=== PATIENT | female | born 1960 | race Caucasian/White ===

== ENCOUNTER → 2019-10-04 | Outpatient (CLI) | payer OTHER | END | disposition home or self-care (01) | LOC: RAH 14:20 | PROVIDERS: ATTEND Internal Medicine Cardiovascular Disease | DX: R22.41 Localized swelling, mass and lump, right lower limb (principal) | CPT/HCPCS: 93971 ==

== ENCOUNTER → 2020-08-02 | Outpatient (CLI) | payer OTHER ==
[~2020-08-02] VITALS: Ht 161.3 cm; Wt 93.8 kg
[~2020-08-02] MED LIST: AMLO10TA7 PO; AMLO5TAB9 PO; AZEL23SP NS; EZET10TA48 PO; FLUT1AER IH; HYDR12.54 PO; LANS15TA10 PO; LEVO137T24 PO; ROSU40TA21 PO; SODIUM CHLORIDE 0.9% 1000ML 1,000 ML IV SCH; TELM80TA10 PO; [UNRECOGNIZED DRUG - OTHER] IH
[2020-08-02 12:21] LABS: BASOPHILS % (AUTO) 0.8 % (0.0-5.0); EOSINOPHILS % (AUTO) 2.2 % (0.0-8.0); HEMATOCRIT 39.5 % (36-48); LYMPHOCYTES % (AUTO) 26.1 % (21.0-51.0); MEAN CORPUSCULAR HEMOGLOBIN 28.5 pg (27.0-33.0); MEAN CORPUSCULAR HGB CONC 32.7 g/dL (32.0-36.0); MEAN CORPUSCULAR VOLUME 87.2 fL (79-99); MONOCYTES % (AUTO) 7.3 % (3.0-13.0); NEUTROPHILS % (AUTO) 63.2 % (40.0-77.0); PLATELET COUNT (AUTO) 271 K/uL (130-400); RED BLOOD CELL COUNT(AUTO) 4.53 MIL/uL (4.00-5.50); WHITE BLOOD COUNT (AUTO) 7.4 K/uL (4.8-10.8)
[2020-08-06 15:08] VITALS: BP 161/83
== END | disposition home or self-care (01) ==
LOC: DAH 10:00 → EDSTATUS 08-08 13:00
PROVIDERS: ATTEND Specialist
DX: Z20.828 Contact with and (suspected) exposure to other viral communicable diseases (principal); N95.0 Postmenopausal bleeding; I10 Essential (primary) hypertension; E03.9 Hypothyroidism, unspecified; J45.909 Unspecified asthma, uncomplicated
CPT/HCPCS: 36415; 85025; 86850; 86900; 86901; A6260; C9803; U0003

== ENCOUNTER 2020-08-16 12:02 | Day surgery (SDC) | payer OTHER ==
[2020-08-15 13:45] LABS: BASOPHILS % (AUTO) 1.1 % (0.0-5.0); LYMPHOCYTES % (AUTO) 22.6 % (21.0-51.0); MEAN CORPUSCULAR HEMOGLOBIN 28.7 pg (27.0-33.0); MEAN CORPUSCULAR HGB CONC 33.4 g/dL (32.0-36.0); MEAN CORPUSCULAR VOLUME 85.8 fL (79-99); MONOCYTES % (AUTO) 8.7 % (3.0-13.0); NEUTROPHILS % (AUTO) 65.2 % (40.0-77.0); PLATELET COUNT (AUTO) 298 K/uL (130-400); RED BLOOD CELL COUNT(AUTO) 4.43 MIL/uL (4.00-5.50); RED CELL DISTRIBUTION WIDTH 13.6 % (11.0-15.5); WHITE BLOOD COUNT (AUTO) 7.5 K/uL (4.8-10.8)
[2020-08-15 15:50] VITALS: BP 118/73
[~2020-08-16] VITALS: Ht 157.5 cm; Wt 92.1 kg
[2020-08-16] VITALS (17 sets, daily range): BP systolic 145–159; BP diastolic 55–98
[~2020-08-16 12:02] MED LIST changes: -AMLO10TA7 PO; -SODIUM CHLORIDE 0.9% 1000ML 1,000 ML IV SCH
[2020-08-16] MEDS ORDERED: MIDAZOLAM HCL 1 MG/ML 2ML VIAL ONE ×2 (13:16→13:21)
[2020-08-16] MEDS ORDERED: LIDOCAINE PF 2% 5ML ABBOJECT ONE (13:20)
[2020-08-16] MEDS ORDERED: DEXAMETHASONE SOD PHOSPHATE 10MG/ML 1ML VIAL ONE (13:21)
[2020-08-16] MEDS ORDERED: ONDANSETRON HCL 4 MG/2 ML VIAL ONE (13:21)
[2020-08-16] MEDS ORDERED: FENTANYL CITRATE PF 50 MCG/1 ML 2ML VIAL ONE (13:21)
[2020-08-16] MEDS ORDERED: ROCURONIUM 10MG/1ML SYR 10 MG/ML ML ONE (13:21)
[2020-08-16] MEDS ORDERED: PROPOFOL 10 MG/ML 20ML VIAL IV ONE (13:21)
[2020-08-16] MEDS ORDERED: NEOSTIGMINE 5MG/5ML SYR IV ONE (13:52)
[2020-08-16] MEDS ORDERED: GLYCOPYRROLATE 1 MG/5 ML SYRINGE ONE (13:52)
[2020-08-16] MEDS: LACTATED RINGERS 1000ML 1,000 ML IV SCH ×2 (14:17→14:45)
--- NOTE | 2020-08-16 15:20 | NUR ---
ASSESSMENT RECEIVED PT FROM PACU STAFF KHURRAM HAQ. PT DOING WELL. AAOX3. AMBULATED TO RESTROOM.
--- NOTE | 2020-08-16 16:00 | NUR ---
DISCHARGE DISCHARGE INSTRUCTIONS GIVEN TO . PRESCRIPTION GIVEN TO PT. NO OTHER QUESTIONS
== END 2020-08-16 16:10 | disposition home or self-care (01) ==
LOC: DAH 12:02
PROVIDERS: ATTEND Specialist
DX: N95.0 Postmenopausal bleeding (principal); I10 Essential (primary) hypertension; K21.9 Gastro-esophageal reflux disease without esophagitis; E03.9 Hypothyroidism, unspecified; E66.9 Obesity, unspecified; J45.909 Unspecified asthma, uncomplicated; Z79.899 Other long term (current) drug therapy
CPT/HCPCS: 36415; 58120; 85025; 86850; 86900; 86901; A4215; A4221; A4222; A4223; A4351; A4510; A4600; A4663; J1100; J2001; J2250 ×2; J2405; J2704; J2710; J3010; J3490; J7120

== ENCOUNTER 2020-11-26 15:11 | Emergency (ER) | payer BC, OTHER ==
[~2020-11-26 15:11] MED LIST changes: +AMLO-257 PO; -AMLO5TAB9 PO
[2020-11-26 15:44] LABS: PROTHROMBIN TIME 10.7 SEC (9.6-11.6)
[2020-11-26 15:46] LABS: PARTIAL THROMBOPLASTIN TIME < 20.0 SEC (26.3-35.5)
[2020-11-26 15:53] LABS: CARBON DIOXIDE 26 mmol/L (21-32); CHLORIDE 91 mmol/L (101-111); CREATININE 0.9 mg/dL (0.5-1.5); GLOMERULAR FILTR. RATE CALC 68 mL/min (>60); GLUCOSE,RANDOM 146 mg/dL (70-105); POTASSIUM 3.2 mmol/L (3.5-5.1); SODIUM SERUM 129 mmol/L (136-145); UREA NITROGEN, BLOOD 12 mg/dL (7-18)
[2020-11-26 15:55] LABS: APPEARANCE,URINE Clear (CLEAR); BILIRUBIN,URINE Negative (NEGATIVE); COLOR,URINE Yellow (YELLOW); GLUCOSE, URINE (UA) Negative (NEGATIVE); KETONES,URINE Negative (NEGATIVE); LEUKOCYTE ESTERASE ,URINE Trace (NEGATIVE); NITRATE,URINE Negative (NEGATIVE); OCCULT BLOOD,URINE Negative (NEGATIVE); PH,URINE 6.5 (5.0-8.0); PROTEIN,URINE POS 2+ mg/dL (NEGATIVE)
[2020-11-26] MEDS ORDERED: IOHEXOL-350 75 ML VIAL IV ONE (15:56)
[2020-11-26 16:00] LABS: BASOPHILS % (AUTO) 0.9 % (0.0-5.0); EOSINOPHILS % (AUTO) 0.9 % (0.0-8.0); HEMATOCRIT 33.8 % (36-48); LYMPHOCYTES % (AUTO) 10.1 % (21.0-51.0); MEAN CORPUSCULAR HEMOGLOBIN 28.9 pg (27.0-33.0); MEAN CORPUSCULAR HGB CONC 35.2 g/dL (32.0-36.0); MONOCYTES % (AUTO) 1.5 % (3.0-13.0); NEUTROPHILS % (AUTO) 85.5 % (40.0-77.0); PLATELET COUNT (AUTO) 259 K/uL (130-400); RED BLOOD CELL COUNT(AUTO) 4.12 MIL/uL (4.00-5.50); RED CELL DISTRIBUTION WIDTH 13.5 % (11.0-15.5); WHITE BLOOD COUNT (AUTO) 6.6 K/uL (4.8-10.8)
[2020-11-26 16:04] LABS: ALANINE AMINOTRANSFERASE 19 U/L (12-78); ALBUMIN 3.9 g/dL (3.5-5.0); ASPARTATE AMINOTRANSFERASE 27 U/L (10-37); BILIRUBIN,TOTAL 1.5 mg/dL (0.2-1.0); CREATINE KINASE, TOTAL 85 U/L (21-232); MYOGLOBIN 39 ng/mL (10-92); TOTAL PROTEIN, SERUM 7.6 g/dL (6.0-8.3); TROPONIN I < 0.04 ng/mL (0.00-0.06)
[2020-11-26 16:04] LABS: BACTERIA,URINE Rare /HPF (None Seen); RBC,URINE 0-1 /HPF (0-1)
[2020-11-26 16:05] LABS: MUCUS,URINE Rare LPF (None Seen); SQUAMOUS EPITHELIAL CELL,UR Few /HPF (0-2)
[2020-11-26 16:23] LABS: T4 (THYROXINE) 9.7 ug/dL (4.7-13.3); THYROID STIMULATING HORMONE 3.22 uIU/mL (0.36-3.74)
[2020-11-26] MEDS ORDERED: POTASSIUM BICARB/CIT AC 25 MEQ TABLET.EFF ONE (18:14)
[2020-11-26] MEDS ORDERED: SODIUM CHLORIDE 0.9% 1000ML 1,000 ML IV ONE (18:15)
== END 2020-11-26 20:41 | disposition home or self-care (01) ==
LOC: EDH 15:11
DX: K59.00 Constipation, unspecified (principal); R55 Syncope and collapse; I10 Essential (primary) hypertension; E03.9 Hypothyroidism, unspecified; E78.00 Pure hypercholesterolemia, unspecified; Z90.710 Acquired absence of both cervix and uterus; Z85.42 Personal history of malignant neoplasm of other parts of uterus; Z88.0 Allergy status to penicillin
CPT/HCPCS: 36415; 71045; 74177; 80053; 81001; 82550; 83605 ×2; 83874; 84145; 84436; 84443; 84484; 85025; 85610; 85730; 86140; 86900; 86901; 87040 ×2; 87077; 87088; 87186; 93005; 96360; 99285; J7030; Q9967

== ENCOUNTER 2021-03-20 11:54 | Emergency (ER) | payer BC ==
[2021-03-20 12:35] LABS: BASOPHILS % (AUTO) 0.8 % (0.0-5.0); EOSINOPHILS % (AUTO) 1.6 % (0.0-8.0); HEMATOCRIT 21.4 % (36-48); LYMPHOCYTES % (AUTO) 22.4 % (21.0-51.0); MEAN CORPUSCULAR VOLUME 91.8 fL (79-99); NEUTROPHILS % (AUTO) 72.4 % (40.0-77.0); PLATELET COUNT (AUTO) 53 K/uL (130-400); RED BLOOD CELL COUNT(AUTO) 2.33 MIL/uL (4.00-5.50); RED CELL DISTRIBUTION WIDTH 16.1 % (11.0-15.5); WHITE BLOOD COUNT (AUTO) 2.5 K/uL (4.8-10.8)
[2021-03-20 12:43] LABS: CREATININE 0.8 mg/dL (0.5-1.5); POTASSIUM 3.7 mmol/L (3.5-5.1)
[2021-03-20 12:47] LABS: ALBUMIN 3.9 g/dL (3.5-5.0); BILIRUBIN,TOTAL 0.6 mg/dL (0.2-1.0); TOTAL PROTEIN, SERUM 7.6 g/dL (6.0-8.3)
[2021-03-20 13:05] LABS: BAND NEUTROPHILS % (MANUAL) 2 % (0-2); BASOPHILS % (MANUAL) 1 % (0-2); EOSINOPHILS % (MANUAL) 3 % (1-6); LYMPHOCYTES % (MANUAL) 26 % (22-44); MAN.DIFF COMMENT-IMPRESSION MANUAL DIFFERENTIAL; MONOCYTES % (MANUAL) 1 % (2-9); PLATELET MORPHOLOGY COMMENT DECREASED; SEGMENTED NEUTROPHILS % 67 % (40-70)
[2021-03-20 13:32] LABS: APPEARANCE,URINE Clear (CLEAR); BILIRUBIN,URINE Negative (NEGATIVE); COLOR,URINE Yellow (YELLOW); GLUCOSE, URINE (UA) Negative (NEGATIVE); KETONES,URINE Negative (NEGATIVE); LEUKOCYTE ESTERASE ,URINE Negative (NEGATIVE); NITRATE,URINE Negative (NEGATIVE); OCCULT BLOOD,URINE Negative (NEGATIVE); PROTEIN,URINE Negative (NEGATIVE); UROBILINOGEN,URINE 0.2 mg/dL (0.2-1.0)
== END 2021-03-20 14:15 | disposition home or self-care (01) ==
LOC: EDH 11:54
DX: C54.1 Malignant neoplasm of endometrium (principal); D63.0 Anemia in neoplastic disease; R00.2 Palpitations; I10 Essential (primary) hypertension; E78.00 Pure hypercholesterolemia, unspecified; E07.9 Disorder of thyroid, unspecified; Z90.710 Acquired absence of both cervix and uterus
CPT/HCPCS: 36415; 80053; 81003; 84484; 85025; 93005

== ENCOUNTER 2022-10-07 18:55 | Emergency (ER) | payer BC ==
[~2022-10-07] VITALS: Ht 157.5 cm; Wt 86.2 kg
[2022-10-07] MEDS ORDERED: LORAZEPAM 1 MG TABLET PO ONE (19:30)
[2022-10-07 19:58] LABS: BASOPHILS % (AUTO) 0.9 % (0.0-5.0); EOSINOPHILS % (AUTO) 1.5 % (0.0-8.0); HEMATOCRIT 36.2 % (36-48); LYMPHOCYTES % (AUTO) 26.6 % (21.0-51.0); MEAN CORPUSCULAR HEMOGLOBIN 29.1 pg (27.0-33.0); MEAN CORPUSCULAR HGB CONC 34.3 g/dL (32.0-36.0); MONOCYTES % (AUTO) 8.5 % (3.0-13.0); NEUTROPHILS % (AUTO) 62.1 % (40.0-77.0); PLATELET COUNT (AUTO) 196 K/uL (130-400); RED BLOOD CELL COUNT(AUTO) 4.26 MIL/uL (4.00-5.50); RED CELL DISTRIBUTION WIDTH 13.4 % (11.0-15.5); WHITE BLOOD COUNT (AUTO) 5.3 K/uL (4.8-10.8)
[2022-10-07] MEDS ORDERED: LORAZEPAM 1 MG TABLET ONE (19:58)
[2022-10-07 20:08] LABS: CREATININE 0.9 mg/dL (0.5-1.5); POTASSIUM 3.8 mmol/L (3.5-5.1)
[2022-10-07 20:12] LABS: ALBUMIN 3.9 g/dL (3.5-5.0); TOTAL PROTEIN, SERUM 7.7 g/dL (6.0-8.3)
[2022-10-07 20:16] LABS: APPEARANCE,URINE CLEAR (CLEAR); BILIRUBIN,URINE NEGATIVE (NEGATIVE); COLOR,URINE COLORLESS (YELLOW); GLUCOSE, URINE (UA) NEGATIVE (NEGATIVE); KETONES,URINE NEGATIVE (NEGATIVE); LEUKOCYTE ESTERASE ,URINE NEGATIVE Leu/uL (NEGATIVE); NITRATE,URINE NEGATIVE (NEGATIVE); OCCULT BLOOD,URINE NEGATIVE (NEGATIVE); PH,URINE 6.5 (5.0-8.0); PROTEIN,URINE NEGATIVE (NEGATIVE); UROBILINOGEN,URINE 0.2 mg/dL (0.2-1.0)
[2022-10-07 20:25] LABS: RBC,URINE 0-1 /HPF (0-1); SQUAMOUS EPITHELIAL CELL,UR RARE /HPF (0-2); WBC,URINE 0-1 /HPF (0-1)
[2022-10-07 21:01] VITALS: BP 145/61
== END 2022-10-07 21:03 | disposition home or self-care (01) ==
LOC: EDH 18:55
DX: I10 Essential (primary) hypertension (principal); F41.9 Anxiety disorder, unspecified; E78.00 Pure hypercholesterolemia, unspecified; E03.9 Hypothyroidism, unspecified; Z90.710 Acquired absence of both cervix and uterus; Z88.0 Allergy status to penicillin; Z91.040 Latex allergy status; Z88.5 Allergy status to narcotic agent; Z79.51 Long term (current) use of inhaled steroids
CPT/HCPCS: 36415; 71045; 80053; 81001; 84484; 85025; 93005

== ENCOUNTER → 2022-12-15 | Outpatient (CLI) | payer BC ==
[~2022-12-15] MED LIST changes: +IOHEXOL 350 MG/ML 100ML INFUS..BTL IV ONE
== END | disposition home or self-care (01) ==
LOC: RAH 09:55
PROVIDERS: ATTEND Internal Medicine
DX: K43.9 Ventral hernia without obstruction or gangrene (principal); K57.90 Diverticulosis of intestine, part unspecified, without perforation or abscess without bleeding; M47.815 Spondylosis without myelopathy or radiculopathy, thoracolumbar region; Z29.8 Encounter for other specified prophylactic measures; N32.89 Other specified disorders of bladder
CPT/HCPCS: 74177; Q9967

== ENCOUNTER → 2024-12-20 | Outpatient (CLI) | payer MEDICARE, OTHER ==
[~2024-12-20] MED LIST changes: -IOHEXOL 350 MG/ML 100ML INFUS..BTL IV ONE; -ROSU40TA21 PO; +ROSU40TA88 PO
--- NOTE | 2024-12-20 16:08 | HMCIMG ---
Exam: NONCONTRAST CT BRAIN REASON: HEADACHE, UNSPECIFIED. COMPARISON: None. TECHNIQUE: Images are obtained from vertex to the skull base. The exam was performed without IV contrast. FINDINGS: There is normal appearing brain parenchyma. There are no focal mass lesions. There is is no evidence of intracranial hemorrhage or acute stroke. Ventricles and sulci appear normal. Posterior fossa and brainstem structures are unremarkable. Paranasal sinuses and remaining extracranial soft tissues appear normal as well. IMPRESSION: 1. Normal noncontrast CT brain. CT was performed with one or more following dose reduction techniques: automated exposure control, adjustment of the mA and kv according to patient's size, or use of a iterative reconstruction technique.
== END | disposition home or self-care (01) ==
LOC: RAH 14:52
PROVIDERS: ATTEND Internal Medicine
DX: R51.9 Headache, unspecified (principal)
CPT/HCPCS: 70450

== ENCOUNTER 2025-01-02 08:26 | Emergency (ER) | payer MEDICARE ==
[~2025-01-02] VITALS: Ht 157.5 cm; Wt 79.4 kg
--- NOTE | 2025-01-02 09:45 | EKG ---
[facility] Test Date: 2025-01-02 Test Time: 08:47:35 Pat Name: JUAN TODD Department: ED Room: Gender: F Staff Writer: [id number] : 1960 Requested By: NATALEE STARK Order Number: [id number] Reading MD: Rafael Tavera Measurements Intervals [place] Rate: 81 P: 38 MT: 139 QRS: 31 QRSD: 78 T: 26 QT: 382 QTc: 444 Interpretive Statements Sinus rhythm Compared to ECG 10/07/2022 20:40:01 No significant changes Electronically Signed On 01-02-2025 16:41:50 SALVAGE WINDER by Rafael Tavera Please click the below link to view image of tracing.
[2025-01-02 10:31] LABS: BASOPHILS # (AUTO) 0.04 K/uL (0.00-0.20); BASOPHILS % (AUTO) 0.4 % (0.0-5.0); EOSINOPHILS # (AUTO) 0.02 K/uL (0.00-0.70); EOSINOPHILS % (AUTO) 0.2 % (0.0-8.0); HEMATOCRIT 39.3 % (36-48); IMMATURE GRANULOCYTE ABSOLUTE 0.04 K/uL (0-1); LYMPHOCYTES % (AUTO) 9.6 % (21.0-51.0); MEAN CORPUSCULAR HEMOGLOBIN 29.5 pg (27.0-33.0); MEAN CORPUSCULAR HGB CONC 33.6 g/dL (32.0-36.0); MEAN CORPUSCULAR VOLUME 87.9 fL (79-99); MONOCYTES # (AUTO) 0.7 K/uL (0.1-1.0); MONOCYTES % (AUTO) 6.5 % (3.0-13.0); NEUTROPHILS # (AUTO) 8.7 K/uL (1.8-7.7); NEUTROPHILS % (AUTO) 82.9 % (40.0-77.0); PLATELET COUNT (AUTO) 199 K/uL (130-400); RED BLOOD CELL COUNT(AUTO) 4.47 MIL/uL (4.00-5.50); RED CELL DISTRIBUTION WIDTH 15.9 % (11.0-15.5); WHITE BLOOD COUNT (AUTO) 10.5 K/uL (4.8-10.8)
[2025-01-02 10:39] LABS: CREATININE 0.9 mg/dL (0.5-1.0); POTASSIUM 3.7 mmol/L (3.5-5.1)
[2025-01-02 10:44] LABS: ALBUMIN 3.5 g/dL (3.5-5.0); TOTAL PROTEIN, SERUM 7.3 g/dL (6.0-8.3)
[2025-01-02] MEDS: PANTOPrazole 40 MG/VIAL IVP ONE (11:52)
[2025-01-02] MEDS: ondanSETRON 4MG INJ IVP ONE (11:52)
[2025-01-02] MEDS: 0.9%NACL 1000ML 1,000 ML IV ONE (11:53)
[2025-01-02 12:04] VITALS: BP 130/85; PULSE 77; RESP 16; TEMP 97.9; O2SAT 98
[2025-01-02] MEDS ORDERED: LACT-356 PO (12:21)
[2025-01-02] MEDS ORDERED: PANT40TA55 PO (12:21)
--- NOTE | 2025-01-02 12:21 | ERN ---
General Chief Complaint: Nausea,Vomiting,Diarrhea Stated Complaint: NAUSEA Time Seen by MD: 08:29 Source: patient History of Present Illness Initial Comments PATIENT IS A 64-YEAR-OLD FEMALE COMING IN TO BE EVALUATED FOR ABDOMINAL DISCOMFORT. PATIENT STATES THAT SHE WAS LACTOSE INTOLERANCE AND YESTERDAY SHE HAD SOME CHEESE WHICH MADE SYMPTOMS WORSE. SHE STATES THAT SHE WAS BARELY GETTING OVER A BAD STOMACH INFECTION. NO FEVER NO CHILLS Allergies: Coded Allergies: Penicillins (Unverified Allergy, Unknown, fainted, 08/07/20) latex (Unverified Allergy, Unknown, 10/07/22) lorazepam (Unverified Allergy, Unknown, 10/07/22) IV Home Meds Reported Medications Amlodipine Besylate (Amlodipine Besylate) 5 Mg Tablet, 5 MG PO DAILY PRN for INCREASED BLOOD PRESSURE, TAB 08/07/20 Lansoprazole (Lansoprazole) 15 Mg Tab.rap.dr, 15 MG PO DAILY PRN for GI UPSET/UPSET STOMACH 08/07/20 [Pro-respi click] No Conflict Check, 1 PUFF IH DAILY PRN for SHORTNESS OF BREATH/WHEEZING 08/07/20 Ezetimibe (Ezetimibe) 10 Mg Tablet, 10 MG PO DAILY, TAB 08/07/20 Fluticasone/Vilanterol (Breo Ellipta 100-25 Mcg INH) 1 Each Aer.pow.ba, 1 EACH IH DAILY 08/07/20 Azelastine/Fluticasone (Dymista Nasal [place]) 23 Gm [place].pump, 1 SPRY NS DAILY 08/07/20 Levothyroxine Sodium (Synthroid) 137 Mcg Tablet, 137 MCG PO DAILY, TAB 08/07/20 Rosuvastatin Calcium (Rosuvastatin Calcium) 40 Mg Tablet, 40 MG PO DAILY, TAB 08/07/20 Telmisartan (Telmisartan) 80 Mg Tablet, 80 MG PO DAILY, TAB 08/07/20 Hydrochlorothiazide (Hydrochlorothiazide) 12.5 Mg Tablet, 12.5 MG PO DAILY, TAB 08/07/20 Past Medical History Past Medical History: Cancer, High Cholesterol, Hypothyroid Medical History Other: UTERINE CA Past Surgical History: Hysterectomy ROS Dictation CONSTITUTIONAL: NO CHILLS, NO FEVER, NO WEAKNESS, NO DIAPHORESIS, NO MALAISE. HEAD/FACE: NO SIGNS OF TRAUMA. EENT: NO EYE PAIN, NO BLURRED VISION, NO TEARING, NO DOUBLE VISION, NO EAR PAIN, NO EAR DISCHARGE, NO NOSE PAIN, NO NASAL CONGESTION, NO THROAT PAIN, NO THROAT SWELLING, NO MOUTH PAIN. RESPIRATORY: NO COUGH, NO ORTHOPNEA, NO SOB, NO STRIDOR, NO WHEEZING. CARDIOVASCULAR: NO CHEST PAIN, NO EDEMA, NO PALPITATIONS, NO SYNCOPE. GASTROINTESTINAL/ABDOMINAL: NO ABDOMINAL PAIN, NO CONSTIPATION, NO DIARRHEA, NO NAUSEA, NO VOMITING. GENITOURINARY: NO ABNORMAL DISCHARGE, NO DYSURIA, NO FREQUENT URINATION, NO HEMATURIA. NO COMPLAINTS OF PAIN IN THE GENITALS. MUSCULOSKELETAL: NO BACK PAIN, NO GOUT, NO JOINT PAIN, NO JOINT SWELLING, NO MUSCLE PAIN, NO MUSCLE STIFFNESS, NO NECK PAIN. INTEGUMENTARY: NO CHANGE IN COLOR, NO CHANGE IN HAIR/NAILS, NO DRYNESS, NO LESION, NO LUMPS, NO RASH. NEUROLOGICAL/PSYCH: NO ANXIETY, NOT DEPRESSED, NO EMOTIONAL PROBLEM, NO HEADACHE, NO NUMBNESS, NO PRE-EXISTING DEFICIT, NO HISTORY OF SEIZURES, NO TREMORS, NO WEAKNESS. HEMATOLOGIC/LYMPHATIC: NOT ANEMIC, NO HISTORY OF BLOOD CLOTS, NO APPARENT BLEEDING, NO BRUISING, GLANDS NOT SWOLLEN. ALL SYSTEMS NEGATIVE, EXCEPT NOTED. Physical Exam Physical Exam Dictation VITAL SIGNS: REVIEWED. GENERAL APPEARANCE: ALERT, ORIENTED X3, NO ACUTE DISTRESS, OBESE. HEAD AND FACE: NON-TRAUMATIC. EYES: PERRL, PINK CONJUNCTIVAS, EYELID NO TRAUMA, ANTERIOR CHAMBER CLEAR. EARS: PINNAS INTACT AND NO SIGNS OF TRAUMA OR ERYTHEMA. EAR CANALS CLEAR AND NO DISCHARGE. TMS NO ERYTHEMA. NOSE: NO DISCHARGE, NO BLEEDING. OROPHARYNX: MOUTH NORMAL, TEETH NO CARIES, TONGUE PINK. PHARYNX CLEAR, NO ERYTHEMA. TONSILS NO EXUDATES, NO ABSCESSES NOTED. MUCOUS MEMBRANE MOIST. NECK: SUPPLE, NON-TENDER, NO THYROMEGALY, NO MASSES, NO JVD, NO BRUITS. BREAST: DEFERRED. CHEST: NO TENDERNESS, NO CREPITUS, NO PARADOXICAL MOVEMENT, NO RETRACTIONS. LUNGS: CLEAR, WELL-VENTILATED, SYMMETRIC, NO RALES, NO WHEEZING, NO RHONCHI, NO STRIDOR, GOOD BREATH SOUNDS BILATERALLY. HEART: REGULAR RATE, REGULAR RHYTHM, NO MURMUR, NO GALLOPS. VASCULAR: NO PERIPHERAL EDEMA. ABDOMEN: SOFT, POSITIVE BOWEL SOUNDS, NONDISTENDED, NO GUARDING, NONTENDER, NO REBOUND, NO MASSES NO HEPATOMEGALY, NO SPLENOMEGALY, NO FREGOSO'S SIGN, NO HERNIAS. RECTAL: DEFERRED. GENITAL: DEFERRED. NEUROLOGICAL: NORMAL SPEECH, GROSS MOTOR FUNCTION INTACT, GROSS SENSORY FUNCTION INTACT. MUSCULOSKELETAL: NECK NONTENDER, FULL RANGE OF MOTION, BACK NONTENDER, FULL RANGE OF MOTION. EXTREMITIES: NONTENDER, FULL RANGE OF MOTION. SKIN: COLOR PINK, DRY, NO TURGOR, NO RASH, NO LACERATIONS, NO ABRASIONS, NO CONTUSIONS. LYMPHATICS: DEFERRED. Results Laboratory and Microbiology Lab and Micro Result Laboratory Tests Test 01/02/25 10:03 White Blood Count 10.5 K/uL (4.8-10.8) Red Blood Count 4.47 MIL/uL (4.00-5.50) Hemoglobin 13.2 g/dL (12.0-16.0) Hematocrit 39.3 % (36-48) Mean Corpuscular Volume 87.9 fL (79-99) Mean Corpuscular Hemoglobin 29.5 pg (27.0-33.0) Mean Corpuscular Hemoglobin Concent 33.6 g/dL (32.0-36.0) Red Cell Distribution Width 15.9 % (11.0-15.5) H Platelet Count 199 K/uL (130-400) Mean Platelet Volume 9.9 fL (7.5-10.5) Immature Granulocyte % (Auto) 0.4 % (0-1) Neutrophils (%) (Auto) 82.9 % (40.0-77.0) H Lymphocytes (%) (Auto) 9.6 % (21.0-51.0) L Monocytes (%) (Auto) 6.5 % (3.0-13.0) Eosinophils (%) (Auto) 0.2 % (0.0-8.0) Basophils (%) (Auto) 0.4 % (0.0-5.0) Neutrophils # (Auto) 8.7 K/uL (1.8-7.7) H Lymphocytes # (Auto) 1.0 K/uL (1.0-4.8) Monocytes # (Auto) 0.7 K/uL (0.1-1.0) Eosinophils # (Auto) 0.02 K/uL (0.00-0.70) Basophils # (Auto) 0.04 K/uL (0.00-0.20) Absolute Immature Granulocyte (auto 0.04 K/uL (0-1) Nucleated Red Blood Cells 0.0 % (0.0-0.19) White Cell Morphology Comment See comments Sodium Level 143 mmol/L (136-145) Potassium Level 3.7 mmol/L (3.5-5.1) Chloride Level 104 mmol/L (101-111) Carbon Dioxide Level 29 mmol/L (21-32) Blood Urea Nitrogen 11 mg/dL (7-18) Creatinine 0.9 mg/dL (0.5-1.0) Glomerular Filtration Rate Calc 71 mL/min (>90) Random Glucose 123 mg/dL (70-105) H Total Calcium 9.5 mg/dL (8.5-10.1) Total Bilirubin 1.0 mg/dL (0.2-1.0) Aspartate Amino Transf (AST/SGOT) 24 U/L (10-37) Alanine Aminotransferase (ALT/SGPT) 20 U/L (12-78) Alkaline Phosphatase 100 U/L (50-136) Total Creatine Kinase 49 U/L (21-232) # Troponin I High Sensitivity < 4 ng/L (4-50) L Total Protein 7.3 g/dL (6.0-8.3) Albumin 3.5 g/dL (3.5-5.0) Lipase 37 U/L (16-77) Labs Reviewed?: Yes MDM MDM: DIFFERENTIAL DIAGNOSIS: GASTROENTERITIS, VIRAL GASTROENTERITIS, GASTRITIS, PATIENT IS A 64-YEAR-OLD FEMALE WITH A HISTORY OF LACTOSE INTOLERANCE COMING IN TO BE EVALUATED FOR ABDOMINAL DISCOMFORT. SHE ALSO STATES THAT SHE HAS BEEN HAVING SOME NAUSEOUSNESS AND AND DIARRHEA. LABORATORY WORKUP NEGATIVE FOR ACUTE FINDINGS. PATIENT RECEIVED SOME IV FLUIDS WELL IV PROTONIX STATES SHE FEELS MUCH BETTER. PATIENT WILL BE DISCHARGED IN STABLE CONDITION WITH A DIAGNOSIS OF VIRAL GASTROENTERITIS AND ACCIDENT INTOLERANCE. I ADVISED HER APPROPRIATE DIET CHANGE IN ORDER TO HELP WITH THE SYMPTOMS. ED Course Orders Procedure Category Date Status Time Cbc With Differential LAB 01/02/25 Complete 08:33 Comprehensive LAB 01/02/25 Complete Metabolic Panel 08:33 Troponin I High LAB 01/02/25 Complete Sensitivity 08:33 Urinalysis Profile LAB 01/02/25 Logged 08:33 12 Lead Ekg Tracing- EKG 01/02/25 Complete Technical 08:33 0.9%Nacl 1000ml (Ns PHA 01/02/25 Complete 1000ml) 09:00 Ondansetron 4mg Inj PHA 01/02/25 Complete (Zofran 4mg Inj) 09:00 Pantoprazole 40mg Inj PHA 01/02/25 Complete (Protonix 40mg Inj 09:00 Creatine Kinase, Total LAB 01/02/25 Complete 08:33 Lipase LAB 01/02/25 Complete 08:33 Current Medications Medications (Trade) Dose Ordered Sig/Blanco Route PRN Reason Start Time Stop Time Status Last Admin Dose Admin Ondansetron HCl (zoFRAN 4MG INJ) 4 mg ONCE ONCE IVP 01/02/25 09:00 01/02/25 09:01 DC 01/02/25 11:52 Pantoprazole Sodium (PROTonix 40MG INJ) 40 mg ONCE ONCE IVP 01/02/25 09:00 01/02/25 09:01 DC 01/02/25 11:52 Sodium Chloride 1,000 ml @ 0 mls/hr ONCE ONCE IV 01/02/25 09:00 01/02/25 09:01 DC 01/02/25 11:53 Vital Signs Date Time Temp Pulse Resp B/P (MAP) Pulse Ox O2 Delivery O2 Flow Rate FiO2 01/02/25 12:04 97.9 77 16 130/85 98 Room Air* 0 21 01/02/25 08:28 97.9 85 20 148/90 98 Room Air 0 DX & DISP Disposition: Discharge Departure Impression: Primary Impression: Gastroenteritis Additional Impression: Lactose intolerance Condition: Stable Scripts Lactobacillus Acidophilus (Acidophilus Probiotic) 500 Million Cell Capsule 1 CAP PO BID for 7 Days, #14 CAP 0 Refills Prov: NATALEE STARK MD 01/02/25 Pantoprazole Sodium (Protonix) 40 Mg Ectab 1 TAB PO DAILY for 14 Days, #30 TAB 0 Refills Prov: NATALEE STARK MD 01/02/25 Additional Instructions: FOLLOW-UP WITH PRIMARY CARE PROVIDER IN 1 TO 2 DAYS. TAKE MEDICATIONS DIRECTED HERE IN THE EMERGENCY ROOM. OKAY TO CONTINUE HOME MEDICATIONS UNLESS OTHERWISE DISCUSSED DURING YOUR VISIT IN THE EMERGENCY ROOM TODAY. RETURN TO YOUR NEAREST EMERGENCY ROOM IF SYMPTOMS WORSEN OR IF THERE IS NO IMPROVEMENT. CALL 911 IF YOU NEED IMMEDIATE ASSISTANCE. TAKE TYLENOL [id number] NEEDED AND IF NO CONTRAINDICATIONS ARE PRESENT. INCREASE ORAL HYDRATION. A WOUND CULTURE OR URINE CULTURE WAS ORDERED HERE IN THE EMERGENCY ROOM DEPARTMENT PLEASE FOLLOW-UP WITH PRIMARY CARE PROVIDER AND ADVISE THEM TO GET REPEAT PORTS FROM OUR FACILITY. IF YOU HAD ANY KURT WRAP/SPLINTS THAT WERE APPLIED HERE, PLEASE DO NOT REMOVE THEM UNTIL YOU SEE YOUR PRIMARY CARE OR SPECIALTY. REFERRALS: Referrals: JUANCHO VAUGHN MD (PCP) Time of Disposition: 12:19 NATALEE STARK MD Jan 02, 2025 12:21
== END 2025-01-02 12:58 | disposition home or self-care (01) ==
LOC: EDH 08:26
DX: K52.9 Noninfective gastroenteritis and colitis, unspecified (principal); E73.9 Lactose intolerance, unspecified; E03.9 Hypothyroidism, unspecified; E78.00 Pure hypercholesterolemia, unspecified; Z79.51 Long term (current) use of inhaled steroids; Z79.890 Hormone replacement therapy; Z79.899 Other long term (current) drug therapy; Z88.0 Allergy status to penicillin; Z90.710 Acquired absence of both cervix and uterus
CPT/HCPCS: 99284; 96374; 96361; 96375; 82550; 84484; 80053; 83690; 85025; 36415; 93005; J7030; J2405; J2470